=== PATIENT | female | born 1980 | race Caucasian/White ===

== ENCOUNTER 2017-12-29 14:15 | Emergency (ER) | payer MEDICAID, SELFPAY ==
[2017-12-29 14:17] VITALS: BP 124/81; PULSE 98; RESP 17; RESP 18; TEMP 36.8; O2SAT 97; BMI 19.3
[2017-12-29] MEDS: Ketorolac 60 MG/2 ML Vial IM (14:57)
--- NOTE | 2017-12-29 15:00 | RAD_ITS ---
STUDY: X-RAY - UNILATERAL RIBS ( RIGHT ) WITH CHEST REASON FOR EXAM: Female, 37 years old. Trauma proximally 5 days ago. Pain involving anterior ribs. TECHNIQUE - RIBS: 2 view(s) of the ribs. TECHNIQUE - CHEST: Single frontal projection of the chest. COMPARISON: None. FINDINGS - RIBS: Normal visualized ribs without a demonstrated fracture. FINDINGS - CHEST: The lungs are clear and expanded. There is no demonstrated pleural abnormality. Normal size heart. Normal mediastinum and scarlett. Normal visualized pulmonary arteries. Normal visualized aortic arch and descending thoracic aorta. Normal visualized thoracic spine. Normal visualized ribs, clavicles, and shoulders. There is no demonstrated abnormality of the visualized soft tissue structures of the upper abdomen. RAD/Ribs Uni Min 3V w/PA Chest IMPRESSION: RIBS: Normal x-ray examination of the ribs. CHEST: Normal x-ray examination of the chest. Electronically Signed: Sánchez Grullon MD at 15:34 EDT , Service support ,
--- NOTE | 2017-12-29 15:08 | ED.DCSUM_ITS ---
- ER Visit Summary Date of Service: 12/29/17 Chief Complaint: Right-sided rib pain History of Present Illness: The patient is a 37 F presenting with right-sided rib pain. Patient states that this has been bothering her for the past 4-5 days. She does not recall specific injury. She states she stood up from a chair and felt a pop and the pain worsened. She has been taking Tylenol at home with some improvement. Denies shortness of breath or other complaints. Physical Examination: Vitals are stable. Patient is afebrile. Alert no acute distress. HEENT exam is unremarkable. Neck is supple. Lungs are clear and equal bilaterally. Right mid lateral chest wall tenderness, no crepitus Heart is regular rate and rhythm. Abdomen is soft nontender nondistended. No rebound or guarding. Extremities are unremarkable. Skin is warm and dry. No focal neurologic deficit. Remainder of exam is unremarkable. Emergency Department Course and Treatment: Patient was given Toradol IM with improvement. Right rib series shows no acute process. She is given a prescription for Naprosyn for home. Advised to follow-up with her primary care physician Dr. Meeks. Advised return to ED if worsening complaints. Disposition: Discharge home Impression: Chest wall pain This note was generated with [employer] dictation software. It may contain incorrect words, spelling, and punctuation that were not noted in review of the chart prior to signing ED Disposition - Plan for ED Patient: Chief Complaint: Chest Other Instructions: ED Strain Chest Wall Prescriptions: Naproxen [Naprosyn] 500 mg PO BID PRN #20 tablet Referrals: Jneny Meeks MD [Primary Care Provider] -
--- NOTE | 2017-12-29 15:50 | ED.DEP ---
ED Disposition - Plan for ED Patient: Chief Complaint: Chest Other Instructions: ED Strain Chest Wall Prescriptions: Naproxen [Naprosyn] 500 mg PO BID PRN #20 tablet Referrals: Jenny eMeks MD [Primary Care Provider] -
== END 2017-12-29 16:04 | disposition home or self-care (01) ==
PROVIDERS: Emergency Provider Emergency Medicine; Family Provider Internal Medicine; PCP Internal Medicine
DX: R07.89 Other chest pain (principal); F32.9 Major depressive disorder, single episode, unspecified; Z72.0 Tobacco use
CPT/HCPCS: 71101; 99282

== ENCOUNTER 2018-06-22 14:29 | Emergency (ER) | payer SELFPAY ==
[2018-06-22 14:30] VITALS: BP 158/48; PULSE 98; RESP 17; TEMP 36.7; O2SAT 99; BMI 20.3
--- NOTE | 2018-06-22 14:55 | ED.VISSUMM ---
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 no past history Physical Examination: [] She is in no distress her vital signs are unremarkable she has a dry cough her nose is congested, her uvula is edematous and there is some erythema to the tonsillar pillars is no exudate the airway is completely intact her speech is easy and normal no stridor or drooling the anterior neck shows no lymphadenopathy supple lungs clear heart tones normal abdomen soft upper lower extremity skin neuro exam normal Test Results: [] Emergency Department Course and Treatment: [] Uvulitis strep throat swab is obtained, that is negative, I have explained her the concept of uvulitis, cold liquids ice cream Naprosyn for pain and have her follow with her family doctor the next few days Treatment Plan: [] Disposition: [] Home stable Impression: [] URI with uvulitis This note was generated with [employer] dictation software. It may contain incorrect words, spelling, and punctuation that were not noted in review of the chart prior to signing ED Disposition - Plan for ED Patient: Chief Complaint: Cold Sx Referrals: Jenny Meeks MD [Primary Care Provider] -
[2018-06-22] MEDS: Naproxen 500 MG Tablet PO (15:04)
--- NOTE | 2018-06-22 15:45 | ED.DEP ---
ED Disposition - Plan for ED Patient: Chief Complaint: Cold Sx Instructions: ED Upper Resp Infec No Abx Tx, ED Uvulitis Prescriptions: Naproxen [Naprosyn] 500 mg PO BID PRN #20 tab Referrals: Jenny Meeks MD [Primary Care Provider] -
[2018-06-22 16:05] VITALS: RESP 18
== END 2018-06-22 16:06 | disposition home or self-care (01) ==
PROVIDERS: Emergency Provider Emergency Medicine; Family Provider Internal Medicine; PCP Internal Medicine
DX: J06.9 Acute upper respiratory infection, unspecified (principal); K12.2 Cellulitis and abscess of mouth
CPT/HCPCS: 87880; 99283

== ENCOUNTER 2018-12-25 10:15 | Emergency (ER) | payer SELFPAY ==
[2018-12-25 10:16] VITALS: BP 123/95; PULSE 78; RESP 16; TEMP 36.8; O2SAT 100; BMI 19.8
--- NOTE | 2018-12-25 10:42 | ED.DCSUM_ITS ---
- ER Visit Summary Date of Service: 12/25/18 Chief Complaint: Migraine headache History of Present Illness: The patient is a 38 F who states she has a migraine headache. It started yesterday. She has pressure and throbbing in the back of her head goes down into her shoulder blades. Nothing makes it better but light makes it worse. She admits to photophobia with nausea. She has a history of migraine headaches in the past. She tried ttvu-hvj-nifyiuy meds which did help but not all the way. Denies any fevers. This is her second migraine this month. Physical Examination: Vital signs reviewed. HEENT exam unremarkable. Heart is regular rate and rhythm without murmurs. Lungs are clear to auscultation. Abdomen is soft and nontender. Extremities reveal no edema. Her neck is diffusely tender over the musculature. Skin exam normal. Neurologic exam normal. Test Results: None performed Emergency Department Course and Treatment: Patient was given Compazine and Benadryl. She feels much better. Patient will be discharged use her home medications. She will follow-up with her PCP Treatment Plan: [] Disposition: Discharge Impression: Migraine headache This note was generated with [employer] software. It may contain incorrect words, spelling, and punctuation that were not noted in review of the chart prior to signing ED Disposition - Plan for ED Patient: Referrals: Jenny Meeks MD [Primary Care Provider] -
[2018-12-25] MEDS: DiphenhydrAMINE 50 MG/ML Syringe 25 MG IV (11:29)
[2018-12-25 11:30] VITALS: RESP 17
[2018-12-25] MEDS: proCHLORPERazine 10 MG/2 ML Vial IV (11:30)
--- NOTE | 2018-12-25 12:04 | ED.DEP ---
ED Disposition - Plan for ED Patient: Disposition: Home or Assisted Living Instructions: ED Cephalgia Unspecified Referrals: Jenny Meeks MD [Primary Care Provider] -
[2018-12-25 12:25] VITALS: BP 132/68; RESP 17
== END 2018-12-25 12:27 | disposition home or self-care (01) ==
PROVIDERS: Emergency Provider Emergency Medicine; Family Provider Internal Medicine; PCP Internal Medicine
DX: G43.909 Migraine, unspecified, not intractable, without status migrainosus (principal); Z72.0 Tobacco use
CPT/HCPCS: 96374; 96375; 99283; A4216

== ENCOUNTER 2019-02-10 20:53 | Emergency (ER) | payer SELFPAY ==
[2019-02-10 20:55] VITALS: BP 122/89; PULSE 124; RESP 18; TEMP 36; O2SAT 100; BMI 20.7
--- NOTE | 2019-02-10 21:15 | EKG12_ITS ---
Test Reason : GEN ILLNESS Blood Pressure : / mmHG Vent. Rate : 076 BPM Atrial Rate : 076 BPM P-R Int : 122 ms QRS Dur : 072 ms QT Int : 352 ms P-R-T Axes : 026 047 037 degrees QTc Int : 396 ms Normal sinus rhythm Normal ECG Confirmed by JUANITA FARRIS MD ([id number]), scientific editor ANDRY ROJAS ([id number]) on 02/15/2019 8:44:38 AM Referred By: CLAUDINE Confirmed By:JUANITA FARRIS MD
--- NOTE | 2019-02-10 21:22 | ED.DCSUM_ITS ---
History of Present Illness Chief Complaint: General Illness Informant: Patient Onset: Days Current Severity: Mild Narrative: Patient complains of body aches sense of fever sore throat occasional cough rhinorrhea for the last few days indicates a coworker sister who across numerous similar symptoms she denies she had tubal ligation normal urinary habits no nausea vomiting no fevers that are documented She denies any chest pain shortness of breath the cough is only very occasional and nonproductive she is resting comfortably bed with normal vital signs afebrile pulse ox 100% her heart rate is about 120 and complaining of the whole- body diffuse achy pains Past Medical History - Allergies and Home Meds Allergies/Adverse Reactions: Allergies Penicillins Allergy (Verified 02/10/19 20:57) Swelling morphine Adverse Reaction (Verified 02/10/19 20:57) Swelling Primary Care Physician: Jenny Meeks MD [Primary Care Provider] - Past Medical History: - Smoking Status: Current every day smoker Review of Systems ROS: - She denies as above All systems negative except as indicated General: Reports: Malaise, Subjective. Denies: Chills, Fever, Sweats Eyes: Denies: Visual changes - bilaterally, Diplopia ENT: Denies: Rhinorrhea, Sore throat Cardiovascular: Denies: Chest pain, Palpitations Respiratory: Denies: Dyspnea, Cough, Dyspnea on exertion Gastrointestinal: Denies: Abdominal pain, Nausea, Vomiting, Diarrhea, Melena, Hematochezia Genitourinary: Denies: Dysuria, Hematuria, Frequency Musculoskeletal: Reports: Myalgias. Denies: Back pain, Extremity Pain Skin: Denies: Rash, Wounds Neurological: Denies: Headache, Weakness, Numbness Physical Exam Vital Signs/Narrative: Vital Signs Temp Pulse Resp BP Pulse Ox 02/10/19 20:55 96.8 F L 124 H 18 122/89 H 100 Inital Vital Signs reviewed: Yes General: Well nourished, Well developed, No Acute Distress Head: Normocephalic, Atraumatic Eyes: Perrl, EOMI ENT: Moist mucous membranes, No rhinorrhea Neck: Supple, Nontender Cardiovascular: Regular rate, Regular rhythm, No murmurs Respiratory: No distress, CTA bilaterally, Chest nontender Abdomen: Soft, Nontender, Nondistended, Normal bowel sounds Back: Nontender, Normal Inspection Extremities: Nontender, No edema Skin: Normal color, No rash Neurological: Alert, Oriented x3, Cranial nerves II-XII grossly intact, Normal Strength, Normal Sensation Psychological: Normal affect, Normal Mood Diagnostic/Tx/Re-eval - Medical Decision Making Patient has all of the above complaints and then she had a diarrhea, she was exposed to a coworker as above clinically her physical exam and history are unremarkable given all the above screening labs IV fluids Toradol for the body aches, she has some rhinorrhea she has no cough her lungs are clear abdomen soft and nontender All of the patient's screening labs chest x-ray EKG are unremarkable EKG shows sinus rhythm 80 nothing acute Explained her the exact etiology of her body aches the runny nose the cough are unclear they are consistent with URI she will be asked to take Motrin Tylenol for the body aches follow-up with her outpatient providers return for change in symptoms and she agrees that plan and is comfortable with it Final impression URI with diffuse body aches ED Disposition - Plan for ED Patient: Diagnosis: URI, acute Instructions: ED Upper Resp Infec No Abx Tx Referrals: Jenny Meeks MD [Primary Care Provider] -
[2019-02-10] MEDS: Ketorolac 30 MG/ML Syringe IV (21:33)
[2019-02-10] MEDS: 0.9% Normal Saline 1,000 ML 1000 ML IV (21:33)
[2019-02-10] MEDS: Ondansetron 4 MG/2 ML Vial IV (21:33)
[2019-02-10 21:42] LABS: Bacteria 0 SEEN /hpf (None Seen); Mucous, Urine 0 SEEN /hpf (<or=2+); Red Blood Cells-Urine 0 SEEN /hpf (0-5); White Blood Cells 0 SEEN /hpf (0-5)
[2019-02-10 21:47] LABS: Absolute Lymphocyte Count 2.01 X10^3/ul (0.83-4.51); Absolute Neutrophil Count 7.6 X10^3/uL (2.0-7.7); Basophil# 0.02 X10^3/uL; Basophil% 0.2 % (0-1); Hematocrit 43.5 % (37-47); Hemoglobin 14.9 g/dl (12.0-15.0); Lymphocyte # 2.01 X10^3/ul (4.0); Lymphocyte % 19.9 % (19-41); Mean Corp Hgb Conc 34.3 g/gl (32-36); Mean Corpuscular Hgb 31.3 pg (27.0-32.0); Mean Corpuscular Volume 91.4 fL (81-99); Mean Platelet Vol. 8.9 fl (6.2-12.0); Monocyte# 0.46 X10^3/uL; Monocyte% 4.6 % (0-10); Neutrophil # 7.57 X10^3/uL (2.7-7.7); Platelet Count 306 K/mm3 (150-450); RBC Distribution Width CV 12.2 % (11.6-14.6); RBC Distribution Width SD 40.2 fl (35.1-43.9); Red Blood Count 4.76 M/mm3 (4.2-5.4); White Blood Count 10.1 K/mm3 (4.4-11.0)
[2019-02-10 21:48] LABS: POSITIVE COUNT NO; POSITIVE DIFFERENTIAL NO; POSITIVE MORPHOLOGY NO
[2019-02-10 21:56] LABS: Color, Urine Yellow (Yellow); Glucose, Dipstick Normal (Normal); Ketone-Dipstick Negative (Negative); Leukocyte Esterase-Dipstick Negative /ul (Negative); Nitrite-Dipstick Negative (Negative); Occult Blood-Urine Negative /ul (Negative); Protein-Dipstick Negative (Negative); Specific Gravity, Urine 1.015 (1.002-1.030); Urine Bilirubin Dipstick Negative (Negative); Urine Clarity Clear (Clear); Urine Urobilinogen Normal (Normal)
[2019-02-10 22:13] LABS: Squamous Epithelial Cells - UA 0-5 SEEN /hpf (5-10)
[2019-02-10 22:25] LABS: AST(SGOT) 17 U/L (15-37); Alanine Aminotransfer ALT/SGPT 20 U/L (13-56); Albumin, Serum 4.4 g/dL (3.2-5.0); Alkaline Phosphatase 68 U/L (45-117); Anion Gap 8 (5-15); BUN 9 mg/dL (7-18); BUN/Creat Ratio 10.8 RATIO (10-20); Bilirubin, Direct 0.15 mg/dL (0.00-0.30); Calcium,Total 9.3 mg/dL (8.5-10.1); Chloride 103 mmol/L (98-107); Creatinine, Serum 0.83 mg/dL (0.55-1.02); EST Glomerular Filtration Rate 82 mL/min (>60); Est Glom Filt Rate - Afr Amer 99 mL/min (>60); Estimated Creatinine Clearance 70.03 ml/min; Globulin 3.3 g/dL (2.2-4.2); Glucose 89 mg/dL (74-106); Lipase 112 U/L (73-393); Potassium 3.5 mmol/L (3.5-5.1); Protein, Total 7.7 g/dL (6.4-8.2); Sodium Level 137 mmol/L (136-145)
--- NOTE | 2019-02-10 22:56 | RAD_ITS ---
STUDY: X-RAY CHEST REASON FOR EXAM: Female, 38 years old. Fatigue. Hot flashes. Chills. Lower back pain. Headache. TECHNIQUE: Single AP portable view of the chest. COMPARISON: None. FINDINGS: The lungs are clear and expanded. There is no demonstrated pleural abnormality. Normal size heart. Normal mediastinum and scarlett. Normal visualized pulmonary arteries. Normal visualized aortic arch and descending thoracic aorta. Normal visualized thoracic spine. Normal visualized ribs, clavicles, and shoulders. There is no demonstrated abnormality of the visualized soft tissue structures of the upper abdomen. RAD/Chest 1 View (Portable) IMPRESSION: Normal x-ray examination of the chest. Electronically Signed: Stevo Pond DO at 23:14 EDT Tel [phone], Service support ,
[2019-02-10 23:42] VITALS: BP 129/86; PULSE 81; RESP 16; O2SAT 100
== END 2019-02-10 23:43 | disposition home or self-care (01) ==
LOC: ED 21:44
PROVIDERS: Emergency Provider Emergency Medicine; Family Provider Internal Medicine; PCP Internal Medicine
DX: J06.9 Acute upper respiratory infection, unspecified (principal); F17.200 Nicotine dependence, unspecified, uncomplicated; Z88.0 Allergy status to penicillin
CPT/HCPCS: 71045; 80048; 80076; 81001; 83690; 84484; 85025; 93005; 96361; 96374; 96375; 99283; J7030; A4216; J2405

== ENCOUNTER 2019-02-24 12:21 | Emergency (ER) | payer SELFPAY ==
[2019-02-24 12:22] VITALS: BP 143/95; PULSE 108; RESP 16; TEMP 36.7; O2SAT 100; BMI 19.7
[2019-02-24] MEDS: proCHLORPERazine 10 MG/2 ML Vial IV (13:26)
[2019-02-24] MEDS: 0.9% Normal Saline 1,000 ML 999 ML IV (13:26)
[2019-02-24 13:46] LABS: Mucous, Urine 0 SEEN /hpf (<or=2+); Red Blood Cells-Urine 0 SEEN /hpf (0-5)
[2019-02-24 13:47] LABS: Color, Urine Yellow (Yellow); Glucose, Dipstick Normal (Normal); Ketone-Dipstick Negative (Negative); Leukocyte Esterase-Dipstick Negative /ul (Negative); Nitrite-Dipstick Negative (Negative); Occult Blood-Urine Negative /ul (Negative); Protein-Dipstick Negative (Negative); Urine Bilirubin Dipstick Negative (Negative); Urine Clarity Sl. Cloudy (Clear); Urine Urobilinogen Normal (Normal)
[2019-02-24 13:51] LABS: Internal QC Validated? YES +Cl - CLEAR BKGD; Pregnancy, Urine Negative Negative
[2019-02-24 13:54] LABS: Bacteria 1+ /hpf (None Seen); Squamous Epithelial Cells - UA 0-5 SEEN /hpf (5-10); White Blood Cells 0-5 SEEN /hpf (0-5)
--- NOTE | 2019-02-24 14:22 | ED.RN ---
Addendum entered by Bia Carrizales 02/24/19 14:25: multiple attempts to call pt but unable to reach Original Note: pt stated she felt irritable after receiving compazine. she had refused benadryl as RN was starting to push it in. she called out that she wanted her IV out and by the time the RN was able to enter her room, pt gone. unsure if she has IV still in or not. notified.
--- NOTE | 2019-02-24 15:41 | ED.VISSUMM ---
- ER Visit Summary Date of Service: 02/24/19 Chief Complaint: Headache, weakness History of Present Illness: The patient is a 38 F who has a multitude of complaints including headache, weakness, blurry vision, facial pressure. She also feels nauseous when she needs. This is been ongoing for 2 weeks. She was seen here at that time and had a negative work-up including laboratory studies and chest x-ray. Her symptoms have not improved. She has not followed up with her primary care physician. She has not taken nothing for her symptoms at home. Physical Examination: Vital signs reviewed. HEENT exam unremarkable. Heart is regular rate and rhythm without murmurs. Lungs are clear to auscultation. Abdomen is soft and nontender. Extremities reveal no edema. Skin exam normal. Neurologic exam normal. Test Results: Urinalysis negative for infection or blood. hCG negative Emergency Department Course and Treatment: Patient was given IV fluids as well as Compazine. She refused the Benadryl. I attempted to reevaluate the patient but it appears that she eloped from the emergency department. Treatment Plan: [] Disposition: Eloped Impression: Headache, weakness This note was generated with [employer] dictation software. It may contain incorrect words, spelling, and punctuation that were not noted in review of the chart prior to signing ED Disposition - Plan for ED Patient: Referrals: Jenny Meeks MD [Primary Care Provider] -
== END 2019-02-24 16:10 | disposition home or self-care (01) ==
LOC: ED 13:21
PROVIDERS: Emergency Provider Emergency Medicine; Family Provider Internal Medicine; PCP Internal Medicine
DX: R51 Headache (principal); R53.1 Weakness; R11.0 Nausea; H53.8 Other visual disturbances; Z72.0 Tobacco use
CPT/HCPCS: 81001; 81025; 99283; J7030

== ENCOUNTER 2019-08-23 17:10 | Emergency (ER) | payer SELFPAY ==
[2019-08-23 17:12] VITALS: BP 133/99; PULSE 98; RESP 18; TEMP 36.8; O2SAT 100; BMI 19.2
[2019-08-23 17:28] VITALS: BP 139/99; PULSE 94; RESP 16; O2SAT 94
--- NOTE | 2019-08-23 17:44 | ED.DCSUM_ITS ---
- ER Visit Summary Date of Service: 08/23/19 Chief Complaint: Vomiting and diarrhea History of Present Illness: The patient is a 39 F presenting with vomiting and diarrhea. Patient states she had URI symptoms with rhinorrhea and cough that started one week ago. She states she also had myalgias and fatigue. She was taking piam-syr-aenmbeq cold medicine. States she started to feel better. She states 3 days ago her 5-year-old child started having vomiting and diarrhea. She developed the same symptoms yesterday. She had no recent antibiotics, no recent travel, no bad food exposure. Denies fever or other complaints Physical Examination: Vitals are stable. Patient is afebrile. Alert no acute distress. HEENT exam dry mucous membranes Neck is supple. No meningismus Lungs are clear and equal bilaterally. Heart is regular rate and rhythm. Abdomen is soft nontender nondistended. No guarding or rebound Extremities are unremarkable. Skin is warm and dry. No rash No focal neurologic deficit. Remainder of exam is unremarkable. Emergency Department Course and Treatment: Patient was given IV fluids, Toradol, Zofran. Basic metabolic panel is unremarkable. Influenza negative. On repeat evaluation, patient is feeling improved. She is able to tolerate p.o. in the emergency department. She is given prescription for Zofran. Advised to follow- up with primary care physician. Advised return to ED for worsening complaints. Disposition: Discharge home Impression: Vomiting and diarrhea This note was generated with [employer] dictation software. It may contain incorrect words, spelling, and punctuation that were not noted in review of the chart prior to signing ED Disposition - Plan for ED Patient: Instructions: VOMITING AND DIARRHEA, Nonspecific (Adult) Prescriptions: Ondansetron [Zofran Odt] 4 mg PO Q8H PRN PRN #10 tab PRN Reason: Nausea Prescription Printed Referrals: Jenny Meeks MD [Primary Care Provider] -
[2019-08-23] MEDS: 0.9% Normal Saline 1,000 ML 999 ML IV (17:55)
[2019-08-23] MEDS: Ondansetron 4 MG/2 ML Vial IV (17:56)
[2019-08-23] MEDS: Ketorolac 15 MG/ML Vial IV (17:57)
[2019-08-23 18:21] LABS: Anion Gap 4 (5-15); BUN 15 mg/dL (7-18); BUN/Creat Ratio 22.3 RATIO (10-20); Calcium,Total 8.2 mg/dL (8.5-10.1); Chloride 106 mmol/L (98-107); Creatinine, Serum 0.67 mg/dL (0.55-1.02); EST Glomerular Filtration Rate 104 mL/min (>60); Est Glom Filt Rate - Afr Amer 126 mL/min (>60); Estimated Creatinine Clearance 82.83 ml/min; Glucose 79 mg/dL (74-106); Potassium 3.6 mmol/L (3.5-5.1); Sodium Level 138 mmol/L (136-145)
--- NOTE | 2019-08-23 18:50 | ED.DEP ---
ED Disposition - Plan for ED Patient: Instructions: VOMITING AND DIARRHEA, Nonspecific (Adult) Prescriptions: Ondansetron [Zofran Odt] 4 mg PO Q8H PRN PRN #10 tablet PRN Reason: Nausea Referrals: Jenny Meeks MD [Primary Care Provider] -
[2019-08-23 19:03] VITALS: BP 133/96; PULSE 80; RESP 16; O2SAT 100
== END 2019-08-23 19:07 | disposition home or self-care (01) ==
LOC: ED 17:40
PROVIDERS: Emergency Provider Emergency Medicine; Family Provider Internal Medicine; PCP Internal Medicine
DX: R19.7 Diarrhea, unspecified (principal); R11.2 Nausea with vomiting, unspecified; R53.83 Other fatigue; M79.10 Myalgia, unspecified site; R05 Cough; R51 Headache; Z72.0 Tobacco use
CPT/HCPCS: 80048; 87804; 99283; J7030; J2405

== ENCOUNTER 2020-03-14 11:10 | Emergency (ER) | payer MEDICAID, SELFPAY ==
[2020-03-14 11:11] VITALS: BP 128/102; PULSE 83; RESP 16; TEMP 36.6; O2SAT 98; BMI 18.5
--- NOTE | 2020-03-14 11:28 | ED.VISSUMM ---
- ER Visit Summary Date of Service: 03/14/20 Chief Complaint: Headache, weakness, body aches History of Present Illness: The patient is a 39 F who presents with headache, weakness, and body aches that began today. Patient states she woke up with a headache. Patient states she was able go back to sleep. Patient states when she woke up again she still has a headache. Patient describes it as generalized and aching. Patient admits to nausea but denies any vomiting. Patient admits to body aches. Patient admits to subjective chills. Patient admits to general weakness. Patient did not take her temperature at home. Patient states she feels dizzy when she stands up. Patient states she had a similar illness in August and was told she had the flu. Patient denies any sick contacts. Patient denies any loss of taste or smell. Physical Examination: Vital signs are stable. Patient is afebrile. Patient is in no acute distress. Oral mucosa is pink and moist. Oropharynx shows some mild erythema. There are no exudates. Neck is supple. Trachea is midline. There is no JVD or lymphadenopathy. Heart was regular rate and rhythm. Lungs are clear and equal bilaterally. Abdomen is soft. Bowel sounds are normal. There is no tenderness. Cranial nerves II through XII are intact. There are no focal motor or sensory deficits noted. Extremities are intact. There is no calf tenderness or edema. Test Results: CBC, comprehensive metabolic profile, and urinalysis were obtained were all normal. Rapid strep was negative. Rapid flu was negative. Orthostatic vital signs were obtained and were normal. Emergency Department Course and Treatment: Patient was given IV fluids and Tylenol here. Patient was feeling better on reevaluation. Patient was instructed to drink plenty of fluids. Patient was instructed to take Tylenol or ibuprofen as needed for pain or fever. Patient was instructed to follow-up with her primary care physician in 5 to 7 days. Patient understood and was agreeable with the plan. All questions were answered. Disposition: Discharge home Impression: Viral illness This note was generated with [employer] dictation software. It may contain incorrect words, spelling, and punctuation that were not noted in review of the chart prior to signing ED Disposition - Plan for ED Patient: Disposition: Home or Assisted Living Diagnosis: Viral illness Instructions: ED Viral Syndrome Referrals: Jenny Meeks MD [Primary Care Provider] - 5-7 Days
[2020-03-14] MEDS: 0.9% Normal Saline 1,000 ML 1000 ML IV (12:00)
[2020-03-14] MEDS: Acetaminophen 500 MG Tablet 1000 MG PO (12:01)
[2020-03-14 12:26] LABS: ALB/GLOB Ratio 1.1 RATIO (0.9-2.4); AST(SGOT) 28 U/L (15-37); Alanine Aminotransfer ALT/SGPT 21 U/L (13-56); Alkaline Phosphatase 64 U/L (45-117); Anion Gap 6 (5-15); BUN 9 mg/dL (7-18); BUN/Creat Ratio 10.9 RATIO (10-20); Calcium,Total 8.5 mg/dL (8.5-10.1); Chloride 104 mmol/L (98-107); Creatinine, Serum 0.83 mg/dL (0.55-1.02); EST Glomerular Filtration Rate 82 mL/min (>60); Est Glom Filt Rate - Afr Amer 99 mL/min (>60); Estimated Creatinine Clearance 64.49 ml/min; Globulin 3.8 g/dL (2.2-4.2); Glucose 89 mg/dL (74-106); Potassium 4.4 mmol/L (3.5-5.1); Protein, Total 7.8 g/dL (6.4-8.2); Sodium Level 136 mmol/L (136-145)
[2020-03-14 12:37] LABS: Mucous, Urine 0 SEEN /hpf (<or=2+); Red Blood Cells-Urine 0 SEEN /hpf (0-5)
[2020-03-14 12:40] LABS: Absolute Lymphocyte Count 2.25 X10^3/uL (0.83-4.51); Absolute Neutrophil Count 4.2 X10^3/uL (2.0-7.7); Basophil# 0.05 X10^3/uL; Basophil% 0.7 % (0-1); Eosinophil# 0.03 X10^3/uL; Eosinophils% 0.4 % (0-5); Hematocrit 42.7 % (37-47); Hemoglobin 13.9 g/dL (12.0-15.0); Lymphocyte # 2.25 X10^3/ul (4.0); Lymphocyte % 32.2 % (19-41); Mean Corp Hgb Conc 32.6 g/dL (32-36); Mean Corpuscular Hgb 31.2 pg (27.0-32.0); Mean Platelet Vol. 9.3 fl (6.2-12.0); Monocyte# 0.42 X10^3/uL; NRBC Flagged by Analyzer 0 % (0-5); Neutrophil % 60.3 % (47-70); Platelet Count 275 K/mm3 (150-450); RBC Distribution Width CV 12.8 % (11.6-14.6); RBC Distribution Width SD 44.5 fl (35.1-43.9); Red Blood Count 4.45 M/mm3 (4.2-5.4)
[2020-03-14 12:56] LABS: Color, Urine Straw (Yellow); Glucose, Dipstick Normal (Normal); Ketone-Dipstick Negative (Negative); Leukocyte Esterase-Dipstick 25 /ul (Negative); Nitrite-Dipstick Negative (Negative); Occult Blood-Urine Negative /ul (Negative); Protein-Dipstick Negative (Negative); Specific Gravity, Urine 1.005 (1.002-1.030); Urine Bilirubin Dipstick Negative (Negative); Urine Clarity Sl. Cloudy (Clear); Urine Urobilinogen Normal (Normal); Urine pH 6.5 (5.0 - 8.0)
[2020-03-14 13:07] LABS: Bacteria 1+ /hpf (None Seen); Squamous Epithelial Cells - UA 0-5 SEEN /hpf (5-10); White Blood Cells 0-5 SEEN /hpf (0-5)
[2020-03-14 13:16] VITALS: BP 111/65; BP 117/75; BP 120/88; PULSE 65; PULSE 67; PULSE 75; RESP 16; O2SAT 99
== END 2020-03-14 14:13 | disposition home or self-care (01) ==
PROVIDERS: Emergency Provider Emergency Medicine; PCP Internal Medicine
DX: B34.9 Viral infection, unspecified (principal); F17.210 Nicotine dependence, cigarettes, uncomplicated; R51 Headache; R68.83 Chills (without fever); R11.0 Nausea; R53.1 Weakness; R42 Dizziness and giddiness
CPT/HCPCS: 80053; 81001; 85025; 87804; 87880; 96360; 99285; J7030; A4216

== ENCOUNTER 2021-03-28 10:32 | Emergency (ER) | payer MEDICAID, SELFPAY ==
[2021-03-28 10:34] VITALS: BP 124/75; PULSE 89; RESP 17; TEMP 36.2; O2SAT 97; BMI 19.6
--- NOTE | 2021-03-28 10:51 | ED.VIS.DENTA ---
HPI History of Present Illness Chief Complaint: Dental Informant: patient Onset/Context/Timing Onset: Yesterday Context: Sudden Onset Timing: Continuous Quality: Pain superior to where the left upper first molar would be, tooth #14 Location: Above tooth #14 Current Severity: Mild Maximum Severity: Moderate Worsened by: Nothing Associated Symptoms Assocated Symptom - Dental: face swelling; Negative for fever, jaw swelling, cold sensitivity or hot sensitivity Narrative Narrative: Patient was seen by dentist yesterday. She was placed on clindamycin. She presents because of pain and swelling. She states there is remnants of bruit which has become infected. She is not requesting anything for pain. She is requesting that the abscess be drained. She said she initially had pain March 10. Got better. The pain started again yesterday. She denies fever, chills night sweats patient has a traumatic fever, heart murmur, SBE or being immune suppressed. She denies IV drug use. Prior similar symptoms: Yes Recent Illness/Hospitalization: No PFSH PFSH Home Medications clindamycin HCl 300 mg PO TID 03/28/21 [History Last Taken Unknown] Allergy/AdvReac Type Severity Reaction Status Date / Time Penicillins Allergy Swelling Verified 03/28/21 10:32 morphine AdvReac Swelling Verified 03/28/21 10:32 Surgical History History of appendectomy History of History of tubal ligation Social History (Updated 03/28/21 @ 10:[address] Héctor Zeng MD) household members: children Smoking Status: Current every day smoker tobacco type: cigarettes alcohol intake: current alcohol intake frequency: a few times a month substance use type: does not use ROS ROS ED Constitutional Constitutional ED: Denies chills, fever(s), subjective, sweats or weight loss Eyes Eyes: Denies blurry vision, change in vision or other ENT ENT ED: Denies ear pain, rhinorrhea or sore throat Cardiovascular Cardiovascular: Denies chest pain, palpitations or racing heartbeat Respiratory/Chest Respiratory/Chest: Denies cough, dyspnea, dyspnea on exertion or sputum Gastrointestinal Gastrointestinal: Denies nausea or vomiting Musculoskeletal Musculoskeletal: Denies arthralgias, back pain, myalgias or neck pain Integumentary Reports abscess; Denies Abrasions or rash Neurologic Neurologic: Denies headache(s), paresthesias or weakness Allergic/Immunologic Allergic/Immunologic ED: Reports mouth swelling; Denies tongue swelling or urticaria EXAM Physical Exam Const Vital Signs: 03/28/21 10:34 Temperature 97.1 F L Temperature Source Temporal Pulse Rate 89 Respiratory Rate 17 Blood Pressure 124/75 H Blood Pressure Mean 91 Pulse Ox 97 Oxygen Delivery Method Room Air Positive well nourished and well developed General Appearance ED: well developed HEENT HEENT Narrative: There is no evidence of Ludewig's angina. Face and Sinus: sinuses nontender Mouth ED: Yes oral and palatal mucosa normal, Yes lips normal, Yes tongue normal, Yes salivary gland normal and No mouth trauma Mouth: oral and palatal mucosa normal, lips normal, tongue normal, salivary gland normal and No mouth trauma Teeth and Gingiva: abnormal tooth and associated gingiva Positive for tenderness, associated gingival edema and associated gingival fluctuance Throat: posterior oropharynx normal Eyes PERRL and EOMs intact bilaterally General Eye ED: Negative for pale conjunctiva or scleral icterus Neck no lymphadenopathy, supple and no JVD Neck Narrative: Trachea is midline. There is no inspiratory expiratory stridor. General: normal visual inspection Lymph Lymphatic: no lymphadenopathy noted Chest Wall inspection of chest normal Resp normal respiratory effort and clear to auscultation bilaterally Cardio regular rate, regular rhythm, S1 normal heart sound, S2 normal heart sound and no murmurs Neuro oriented x3 and CN's II-XII intact bilaterally Sensorium / Orientation: alert Psych mental status grossly normal Skin no rashes or lesions noted MDM MDM MDM Narrative Medical decision making narrative: Patient has an apical abscess which has caused a swelling near the buccal gingival junction above tooth #14. This is causing her facial swelling and discomfort. Patient declined pain medicine. The abscess was I&D with a 11 blade. A small poke was made with significant purulent drainage. Procedures Other Procedures Procedure(s): I&D of dental abscess with 11 blade. Did not require anesthesia. Discharge Plan Triage Chief Complaint: Dental ED Provider: Héctor Zeng Dx/Rx/DC Orders Clinical Impression: Abscess, dental Instructions: Dental Abscess Prescriptions: No Action clindamycin HCl 300 mg Capsule 300 mg PO TID RF: 0 Primary Care Provider: Jenny Meeks Referrals: Jenny Meeks MD [Primary Care Provider] - Activity Restrictions/Additional Instructions: Keep scheduled appointment with dentist for root extraction Disposition Disposition: Home, Self Care
== END 2021-03-28 11:06 | disposition home or self-care (01) ==
PROVIDERS: Emergency Provider Emergency Medicine; PCP Internal Medicine
DX: K04.7 Periapical abscess without sinus (principal); F17.210 Nicotine dependence, cigarettes, uncomplicated
CPT/HCPCS: 41800; 99282